=== PATIENT | female | born 1935 | race Caucasian/White ===

== ENCOUNTER 2021-04-25 02:50 | Emergency (ER) | payer OTHER, MEDICAID ==
[~2021-04-25] VITALS: Ht 162.6 cm; Wt 68.0 kg
[~2021-04-25 02:50] MED LIST: ACET-1088 PO; ACET-8386 PO; AMLO-26 PO; ASPI81EC97 PO; BEN10 PO; CLON0.5T PO; COL100L PO; DONE10TA10 PO; DULO30EC PO; FAMO-90 PO; FERR325E14 PO; HYOS-77 PO; LACT10SO11 PO; LEVO100P PO; LORA-476 PO; LYR75 PO; METO-460 PO; PANT40VI PO; SIMV20TA1 PO; TRAZ-343 PO
[2021-04-25 02:55] VITALS: BP 139/61
--- NOTE | 2021-04-25 02:55 | NUR ---
TO BED 10, BROUGHT IN BY AMBULANCE WITH LAC AT THE BACK OF HER HEAD, NO ACTIVE BLEEDING AT THIS TIME.
--- NOTE | 2021-04-25 03:15 | NUR ---
PT. TAKEN TO CT VIA BRIGHT
--- NOTE | 2021-04-25 03:23 | NUR ---
PATIENT TAKEN TO CT VIA GURNEY.
--- NOTE | 2021-04-25 03:53 | NUR ---
MILES RODRIGUEZ AT BEDSIDE FOR EXAMINATION.
[2021-04-25] MEDS ORDERED: KETOROLAC 60 MG/2 ML VIAL IM ONE (04:00)
--- NOTE | 2021-04-25 04:42 | NUR ---
PT. REPOSITIONED FOR COMFORT. CHANGED DIAPER FOR URINATION. SKIN INTACT, NO SKIN BREAKDOWN NOTED. SKIN WARM, ELASTIC AND DRY.
--- NOTE | 2021-04-25 07:15 | NUR ---
Pt report given to HELEN ARRIAGA. Transfer of care at this time.
--- NOTE | 2021-04-25 07:57 | NUR ---
Pt taken to restroom with W/C assistance.
--- NOTE | 2021-04-25 09:00 | NUR ---
Patient discharged with v/s stable. Written and verbal after care instructions about stapels and wound closure given and explained. Patient verbalized understanding. Ambulatory with steady gait. All questions addressed prior to discharge. Advised to follow up with PMD.
[2021-04-25 09:20] VITALS: BP 119/81
== END 2021-04-25 09:00 | disposition home or self-care (01) ==
LOC: MED 02:50
DX: S01.01XA Laceration without foreign body of scalp, initial encounter (principal); E11.9 Type 2 diabetes mellitus without complications; K21.9 Gastro-esophageal reflux disease without esophagitis; I10 Essential (primary) hypertension; F41.9 Anxiety disorder, unspecified; Z79.82 Long term (current) use of aspirin; Z79.899 Other long term (current) drug therapy; Z98.890 Other specified postprocedural states; W19.XXXA Unspecified fall, initial encounter; Y93.89 Activity, other specified; Y92.89 Other specified places as the place of occurrence of the external cause; Y99.8 Other external cause status
CPT/HCPCS: 12002; 70450; 96372; 99284; J1885